=== PATIENT | male | born 1985 | race Asian ===

== ENCOUNTER 2017-02-01 20:05 | Emergency (ER) | payer OTHER ==
[2017-02-01] MEDS ORDERED: Aspirin Low Dose CHEW TAB* 81 MG PO ONE (21:31)
--- NOTE | 2017-02-01 21:59 | RAD ---
INDICATION: Lower left sided chest pain COMPARISON: None. TECHNIQUE: Single AP portable view of the chest was obtained. FINDINGS: Image quality is compromised due to the relative inferiority of a portable chest x-ray. The heart and mediastinum exhibit normal size and contour. The lungs are grossly clear. There is no evidence of a large pleural effusion. Visualized bones are normal for the patient's age. IMPRESSION: No radiographic evidence for acute cardiopulmonary abnormality on this portable chest x-ray.
[2017-02-01 22:59] LABS: Hematocrit 43 % (42-52); Hemoglobin 14.8 g/dl (14.0-18.0); Mean Corpuscular HGB Conc 34 g/dl (31-36); Mean Corpuscular Hemoglobin 30 pg (27-31); Mean Corpuscular Volume 89 fL (80-94); Mean Platelet Volume 8 um3 (7.4-10.4); Red Blood Count 4.87 10^6/ul (4.0-5.4); Red Cell Distribution Width 12 % (10.5-15)
[2017-02-01 23:12] LABS: Albumin 4.5 g/dL (3.2-5.2); BUN/Creatinine Ratio 12.6 (8-20); Calcium 9.1 mg/dL (8.6-10.3); EGFR African American 108.3 (>60); EGFR Non-African American 84.2 (>60); Potassium 3.4 mmol/L (3.5-5.0); Total Bilirubin 0.5 mg/dL (0.2-1.0); Total Protein 7.5 g/dL (6.4-8.9)
[2017-02-01 23:37] VITALS: BP 127/71
--- NOTE | 2017-02-02 22:28 | ED ---
Hector Quezada Adam, scribed for Paul Arriola MD on 02/01/17 at 2118 . HPI Chest Pain - HPI Summary HPI Summary: Pt is a 31 year old male presenting with CP. 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 He was not working with anything dangerous in the lab. Since the onset the pain has been constant but fluctuating in severity. He describes it as a deep sharp needle-like pain in his chest. Breathing very deeply and stretching out his chest aggravates the pain. Moving his arms does not seem to aggravate. He came to the ED because he became increasingly nervous about the CP after reading about it online and thinking that he may have dizziness, diaphoresis, and jaw pain. He denies any cough, dizziness, or fever. 2 years ago he went to [facility] with an episode of CP and was told that it could be due to scar tissue from a trauma. FMHx of CVA (father in his 30's). - History of Current Complaint Chief Complaint: EDChestPainROMI Time Seen by Provider: 02/01/17 21:09 Hx Obtained From: Patient Onset/Duration: Started Hours Ago, Atraumatic, Still Present Timing: Constant Initial Severity: Moderate Current Severity: Moderate Pain Intensity: 3 Pain Scale Used: 0-10 Numeric Chest Pain Location: Diffuse Chest Pain Radiates: Yes Chest Pain Radiates To:: Jaw Character: Sharp/Stabbing Aggravating Factor(s): Deep Breaths, Other: - Stretching chest Alleviating Factor(s): Nothing Associated Signs and Symptoms: Positive: Dizziness, Diaphoresis - Allergy/Home Medications Allergies/Adverse Reactions: Allergies Allergy/AdvReac Type Severity Reaction Status Date / Time No Known Allergies Allergy Verified 02/01/17 20:20 PMH/Surg Hx/FS Hx/Imm Hx Previously Healthy: Yes Infectious Disease History: No Infectious Disease History: Denies: Traveled Outside the [place] in Last 30 Days - Family History Known Family History: Positive: Other - CVA (father in 30's) - Social History Occupation: Student Lives: Alone Hx Substance Use: No Substance Use Type: Reports: None Hx Tobacco Use: Yes Review of Systems Positive: Skin Diaphoresis. Negative: Fever, Chills Negative: Erythema Negative: Sore Throat Positive: Chest Pain Negative: Shortness Of Breath, Cough Negative: Abdominal Pain, Vomiting, Nausea Negative: dysuria, hematuria Negative: Myalgia, Edema Negative: Rash Neurological: Other - Dizziness All Other Systems Reviewed And Are Negative: Yes Physical Exam - Summary Physical Exam Summary: Constitutional: Well-developed, Well-nourished, Alert. (-) Distressed Skin: Warm, Dry HENT: Normocephalic; Atraumatic Eyes: Conjunctiva normal Neck: Musculoskeletal ROM normal neck. (-) JVD, (-) Stridor, (-) Tracheal deviation Cardio: Rhythm regular, rate normal, Heart sounds normal; Intact distal pulses; The pedal pulses are 2+ and symmetric. Radial pulses are 2+ and symmetric. (-) Murmur Pulmonary/Chest wall: Effort normal. (-) Respiratory distress, (-) Wheezes, (-) Rales Abd: Soft, (-) Tenderness, (-) Distension, (-) Guarding, (-) Rebound Musculoskeletal: (-) Edema Lymph: (-) Cervical adenopathy Neuro: Alert, Oriented x3 Psych: Mood and affect Normal Triage Information Reviewed: Yes Vital Signs On Initial Exam: Initial Vitals Temp Pulse Resp BP Pulse Ox 97.9 F 63 18 137/76 100 02/01/17 20:19 02/01/17 20:19 02/01/17 20:19 02/01/17 20:19 02/01/17 20:19 Vital Signs Reviewed: Yes Diagnostics - Vital Signs Vital Signs Temp Pulse Resp BP Pulse Ox 02/01/17 20:19 97.9 F 63 18 137/76 100 - Laboratory Result Diagrams: 02/01/17 22:50 02/01/17 22:50 Lab Statement: Any lab studies that have been ordered have been reviewed, and results considered in the medical decision making process. - Radiology CXR Radiology Interpretation Completed By: Radiologist - IMPRESSION: No radiographic evidence for acute cardiopulmonary abnormality on this portable chest x-ray. - EKG 20:27 Cardiac Rate: NL - 58 BPM EKG Rhythm: Sinus Rhythm - Normal ST Segment: Normal - Additional Comments Diagnostic Additional Comments: Troponin I - 0.00 Chest Pain Course/Dx - Course Course Of Treatment: Concern for this patient as he has not had regular follow- up and has significant family history of vascular disease at a young age. Chest pain has been constant since 16:00. Neg enzymes which would have been expected to rise post pain onset. Pt has sx of anxiety including sweaty palms and soles and anxiety about upcoming graduation and academic tasks related to graduation. He has been advised to follow up with [facility] tomorrow and to return to the ED for any changing or worsening symptoms. CHESTER score = 0. Perc score = 0. - Diagnoses Provider Diagnoses: Chest pain, unspecified, Anxiety Discharge - Discharge Plan Condition: Stable Disposition: HOME Patient Education Materials: Chest Pain (ED), Anxiety (ED) [facility] - Additional Instructions: Follow up with [facility] tomorrow. Return to the ED immediately for any changing or worsening symptoms. The documentation as recorded by the Hector liz Adam accurately reflects the service I personally performed and the decisions made by me, Paul Arriola MD.
== END 2017-02-01 23:49 | disposition home or self-care (01) ==
LOC: ED 20:05
DX: R07.9 Chest pain, unspecified (principal); F41.9 Anxiety disorder, unspecified; R42 Dizziness and giddiness
CPT/HCPCS: 36415; 71010; 80053; 83605; 84484; 85025; 93005; 99283; A9270-GY